=== PATIENT | female | born 1985 | race Caucasian/White ===

== ENCOUNTER 2017-12-22 12:03 | Day surgery (SDC) | payer MEDICARE, MEDICAID ==
[~2017-12-22] VITALS: Ht 165.1 cm; Wt 130.8 kg
[~2017-12-22 12:03] MED LIST: ALBU18HF2 IH; DOCUMENT DATE & TIME OF BETA-BLOCKER PO ONE; METF750T2 PO; METO50TA7 PO; albuterol 2.5 MG/3 ML nebule NEB ONE; ceFOXitin 2 GM ADDvantage bag 100 ML IV ONE; famotidine 20mg tablet PO ONE; ringers solution, lacted 1,000 ML IV SCH
[2017-12-22 12:15] VITALS: BP 135/83
[2017-12-22] MEDS ORDERED: ringers solution, lacted 1,000 ML IV SCH (12:48)
[2017-12-22] MEDS ORDERED: proCHLORperazine 10 MG/2 ml inj IV PRN (12:50)
[2017-12-22] MEDS ORDERED: ondansetron/PF 4mg/2ml inj IV PRN (12:50)
[2017-12-22] MEDS ORDERED: morphine 4 MG/ML inj SYRINge IV PRN ×2 (12:50)
[2017-12-22] MEDS ORDERED: meperidine/PF 25mg/ml syringe IV PRN ×3 (12:50)
[2017-12-22 14:07] LABS: BASOPHILS # (AUTO) 0.1 X10'3 (0-0.2); BASOPHILS % (AUTO) 0.5 % (0-1); EOSINOPHILS # (AUTO) 0.1 X10'3 (0-0.9); LYMPHOCYTES # (AUTO) 2.2 X10'3 (1.1-4.8); LYMPHOCYTES % (AUTO) 20.3 % (21-51); MEAN CORPUSCULAR HEMOGLOBIN 32.2 PG (27.0-31.0); MEAN CORPUSCULAR HGB CONC 34.9 % (33.0-36.5); MEAN CORPUSCULAR VOLUME 92.2 FL (78-98); MEAN PLATELET VOLUME 8.7 FL (7.4-10.4); MONOCYTES # (AUTO) 0.4 X10'3 (0-0.9); MONOCYTES % (AUTO) 3.9 % (2-12); NEUTROPHILS # (AUTO) 7.9 X10'3 (1.8-7.7); NEUTROPHILS % (AUTO) 74.3 % (42-75); PRE OP HEMATOCRIT 42.4 % (35.0-45.0); PRE OP HEMOGLOBIN 14.8 g/dL (12.0-16.0); PRE OP PLATELET COUNT 273 X10'3 (140-440); RED CELL DISTRIBUTION WIDTH 13.3 % (11.5-14.5)
[2017-12-22 14:28] LABS: ALBUMIN 3.9 G/DL (3.4-5.0); ALBUMIN/GLOBULIN RATIO 0.8 (1.1-1.5); ALKALINE PHOSPHATASE 132 IU/L (46-116); BLOOD UREA NITROGEN 10 MG/DL (7-18); BUN/CREATININE RATIO 11.8 (6.6-38.0); CALCIUM 9.4 MG/DL (8.5-10.1); CHLORIDE 103 MMOL/L (99-107); CREATININE 0.85 MG/DL (0.40-0.90); PRE OP ALT 28 U/L (30-65); PRE OP ANION GAP 13 (8-16); PRE OP AST 17 U/L (10-37); PRE OP BILIRUB, TOTAL 1.2 MG/DL (0.0-1.0); PRE OP GLUCOSE 191 MG/DL (70-104); PRE OP POTASSIUM 3.6 MMOL/L (3.4-5.1); PRE OP SODIUM 139 MMOL/L (135-145); TOTAL CARBON DIOXIDE 22.7 MMOL/L (24-32); TOTAL PROTEIN 8.6 G/DL (6.4-8.2); eGFR 78 ML/MIN
[2017-12-22 14:59] LABS: HCG SERUM QL NEGATIVE
[2017-12-22] MEDS ORDERED: sevoflurane 250ml liquid IH ONE (16:12)
[2017-12-22] MEDS ORDERED: dexamethasone sod phosphate 10mg/ml inj ONE (16:12)
[2017-12-22] MEDS ORDERED: fentaNYL/PF 50MCG/1 ML 2ML syringe ONE (16:18)
[2017-12-22] MEDS ORDERED: propofol inj 20 ML IV ONE ×2 (16:18→16:46)
[2017-12-22] MEDS ORDERED: LIDOcaine 2% (20mg/ml) 5ml vial ONE (16:18)
[2017-12-22] MEDS ORDERED: midazolam 2 mg/2 ml injection ONE (16:18)
[2017-12-22] MEDS ORDERED: ondansetron/PF 4mg/2ml inj ONE (16:28)
[2017-12-22] MEDS ORDERED: ketorolac trometh. 30mg/ml inj. ONE (16:28)
[2017-12-22 17:00] VITALS: BP 120/98
[2017-12-22 17:10] VITALS: BP 138/97
[2017-12-22 17:20] VITALS: BP 146/93
[2017-12-22 17:30] VITALS: BP 136/78
== END 2017-12-22 17:50 | disposition home or self-care (01) ==
LOC: PAS 12:03
PROVIDERS: ATTEND Obstetrics & Gynecology Obstetrics
DX: N93.8 Other specified abnormal uterine and vaginal bleeding (principal); N85.8 Other specified noninflammatory disorders of uterus; E66.01 Morbid (severe) obesity due to excess calories; I10 Essential (primary) hypertension; J45.998 Other asthma; E11.9 Type 2 diabetes mellitus without complications; Z68.42 Body mass index [BMI] 45.0-49.9, adult; Z90.49 Acquired absence of other specified parts of digestive tract; Z86.69 Personal history of other diseases of the nervous system and sense organs; Z79.1 Long term (current) use of non-steroidal anti-inflammatories (NSAID); Z79.84 Long term (current) use of oral hypoglycemic drugs; Z79.891 Long term (current) use of opiate analgesic; Z98.890 Other specified postprocedural states; Z79.899 Other long term (current) drug therapy; Z83.3 Family history of diabetes mellitus; Z82.5 Family history of asthma and other chronic lower respiratory diseases; Z80.9 Family history of malignant neoplasm, unspecified
CPT/HCPCS: 36415; 58558; 80053; 82948; 83036; 84703; 85025; 86885; 86900; 86901; 94640; A6255; J0694; J1100; J1885; J2001; J2250; J2405; J2704; J3010; J7030; A4355; A7000; J7120

== ENCOUNTER 2020-11-10 10:10 | Outpatient (CLI) | payer MEDICARE, MEDICAID ==
[~2020-11-10 10:10] MED LIST changes: -DOCUMENT DATE & TIME OF BETA-BLOCKER PO ONE; -METF750T2 PO; +METF750T46 PO; -albuterol 2.5 MG/3 ML nebule NEB ONE; -ceFOXitin 2 GM ADDvantage bag 100 ML IV ONE; -famotidine 20mg tablet PO ONE; -ringers solution, lacted 1,000 ML IV SCH
== END 2020-11-10 23:59 | disposition home or self-care (01) ==
LOC: RAD 10:10
PROVIDERS: ATTEND Physician Assistant
DX: R94.01 Abnormal electroencephalogram [EEG] (principal); G40.909 Epilepsy, unspecified, not intractable, without status epilepticus
CPT/HCPCS: 95819